=== PATIENT | male | born 1970 | race Caucasian/White ===

== ENCOUNTER 2021-04-06 23:21 | Emergency (ER) | payer BC ==
[~2021-04-06] VITALS: Ht 170.2 cm; Wt 81.6 kg
[2021-04-07] MEDS ORDERED: CARAFATE1 GM PO (03:17)
[2021-04-07] MEDS ORDERED: PEPCID AC20 MG PO ×2 (03:17→03:18)
== END 2021-04-07 03:29 | disposition home or self-care (01) ==
LOC: ER 23:21
DX: K29.60 Other gastritis without bleeding (principal); R10.13 Epigastric pain